=== PATIENT | female | born 1990 | race Hispanic/Latino ===

== ENCOUNTER → 2022-12-06 | Day surgery (SDC) | payer BC ==
[~2022-12-06] MED LIST: Acetaminophen 500 MG TAB ONE; Acetaminophen 500 MG TAB PO SCH; Iron Sucrose Complex 500 MG in Sodium Chloride 0.9% 250 ML 250 ML IVPB SCH
== END ==
LOC: CSHSDC/OP 08:33
PROVIDERS: ATTEND Family Medicine
DX: O99.019 Anemia complicating pregnancy, unspecified trimester (principal); D64.9 Anemia, unspecified; Z3A.00 Weeks of gestation of pregnancy not specified
CPT/HCPCS: J1756; J7050